=== PATIENT | female | born 1990 | race Caucasian/White ===

== ENCOUNTER 2022-05-04 17:53 | Emergency (ER) | payer MEDICAID ==
[~2022-05-04] VITALS: Ht 162.6 cm; Wt 124.3 kg
[2022-05-04 18:10] VITALS: BP_SYST 169
[2022-05-04 18:58] LABS: BILIRUBIN,URINE NEGATIVE (NEGATIVE); BLOOD, URINE 1+ (NEGATIVE); CLARITY/URINE SL CLOUDY (CLEAR); COLOR,URINE YELLOW (YELLOW); GLUCOSE,URINE NEGATIVE (NEGATIVE); KETONES,URINE NEGATIVE (NEGATIVE); LEUKOCYTE ESTERASE ,URINE NEGATIVE (NEGATIVE); NITRITE, URINE NEGATIVE (NEGATIVE); PROTEIN URINE NEGATIVE (NEGATIVE); UROBILINOGEN,URINE 0.2 (0.2-1.0)
[2022-05-04 19:39] LABS: BACTERIA,URINE FEW /HPF (None Seen); WBC,URINE 0-3 /HPF (0-3)
--- NOTE | 2022-05-04 21:16 | NUR ---
PATIENT LEFT WITHOUT BEING SEEN. CALLED THREE TIMES PER LAB.
== END 2022-05-04 21:55 | disposition left against medical advice (07) ==
LOC: SED 17:53
DX: R10.13 Epigastric pain (principal); R06.02 Shortness of breath; Z53.21 Procedure and treatment not carried out due to patient leaving prior to being seen by health care provider
CPT/HCPCS: 81000